=== PATIENT | female | born 1960 | race Caucasian/White ===

== ENCOUNTER 2016-11-25 17:55 | Inpatient (IN) | payer MEDICARE, OTHER ==
[2016-11-25 17:58] VITALS: RESP 20
[2016-11-25] MEDS ORDERED: Sodium Chloride 0.9% 1,000 ML IV ONE (18:58)
--- NOTE | 2016-11-25 19:16 | C.PDOC ---
History Of Present Illness 56 y/o female, whose PMHx includes gastritis, and pancreatitis, presents to the ED for evaluation of intermittent epigastric abdominal pain for the last 3 days. Otherwise, denies any fever, n/v/d, or any other associated symptoms at this time. Time Seen by Provider: 11/25/16 18:51 Chief Complaint (Nursing): Abdominal Pain History Per: Patient History/Exam Limitations: no limitations Onset/Duration Of Symptoms: Days (3) Current Symptoms Are (Timing): Still Present Location Of Pain/Discomfort: Epigastric Radiation Of Pain To:: None Quality Of Discomfort: "Pain" Associated Symptoms: denies: Fever, Chills, Nausea, Vomiting, Diarrhea, Loss Of Appetite, Back Pain, Chest Pain, Constipation, Urinary Symptoms Exacerbating Factors: None Alleviating Factors: None Recent travel outside of the [place]: No Additional History Per: Patient Abnormal Vaginal Bleeding: No Past Medical History Reviewed: Historical Data, Nursing Documentation, Vital Signs Vital Signs: Last Vital Signs Temp 98.2 F 11/25/16 17:56 Pulse 69 11/25/16 23:50 Resp 20 11/25/16 23:50 BP 150/87 11/25/16 23:50 Pulse Ox 97 11/25/16 23:50 - Medical History PMH: Depression, Diabetes, Gastritis, HTN, Pancreatitis Family History: States: Unknown Family Hx - Social History Hx Tobacco Use: Yes Hx Alcohol Use: No Hx Substance Use: No - Immunization History Hx Tetanus Toxoid Vaccination: No Hx Influenza Vaccination: No Hx Pneumococcal Vaccination: No Review Of Systems Except As Marked, All Systems Reviewed And Found Negative. Constitutional: Negative for: Fever, Chills Gastrointestinal: Positive for: Abdominal Pain. Negative for: Nausea, Vomiting , Diarrhea, Constipation Genitourinary: Negative for: Dysuria, Frequency, Hematuria Musculoskeletal: Negative for: Back Pain Physical Exam - Physical Exam Appears: Non-toxic, No Acute Distress Skin: Normal Color, Warm, Dry Head: Atraumatic, Normacephalic Eye(s): bilateral: Normal Inspection Neck: Supple Chest: Symmetrical Cardiovascular: Rhythm Regular Respiratory: Normal Breath Sounds, No Rales, No Rhonchi, No Wheezing Gastrointestinal/Abdominal: Soft, Tenderness (mild epigastric), No Guarding, No Rebound Extremity: Normal ROM Neurological/Psych: Oriented x3, Normal Speech, Normal Cognition ED Course And Treatment - Laboratory Results Result Diagrams: 11/25/16 19:12 11/25/16 19:12 O2 Sat by Pulse Oximetry: 98 (on RA) Pulse Ox Interpretation: Normal Progress Note: Labs, EKG ordered and reviewed. Patient was given Protonix, Zofran, and IV fluids. On reassessment, patient is resting comfortably, with no acute distress. Medical Decision Making Medical Decision Making: abdominal pain r/o pancreatitis- labs imaging pending pt reassesedL noted lipase. ivf and pain control given. ct shows pancreatitis. no gallbladder pathology . pt denies drinking. pt unsure of previous eitology of pancreatitis. dr carlota hinojosa Disposition - Disposition Disposition: HOSPITALIZED Disposition Time: 11:00 Condition: STABLE - Clinical Impression Clinical Impression: Pancreatitis - Scribe Statement The provider has reviewed the documentation as recorded by the Scribe Andrea Juarez All medical record entries made by the Scribe were at my direction and personally dictated by me. I have reviewed the chart and agree that the record accurately reflects my personal performance of the history, physical exam, medical decision making, and the department course for this patient. I have also personally directed, reviewed, and agree with the discharge instructions and disposition. Decision To Admit - Pt Status Changed To: Hospital Disposition Of: Inpatient - Admit Certification Admit to Inpatient:: After my assessment, the patient will require hospitalization for at least two midnights. This is because of the severity of symptoms shown, intensity of services needed, and/or the medical risk in this patient being treated as an outpatient. - InPatient: Physician Admission Certification:: pancreatis needs ivf, and pain contorl - . Bed Request Type: Regular Admitting Physician: Francisco Birmingham Jr. Patient Diagnosis: Pancreatitis
[2016-11-25] MEDS ORDERED: Sodium Chloride 0.9% 1,000 ML ONE (19:19)
[2016-11-25 19:21] LABS: BASO % 0.4 % (0.0-2.0); EOS # 0.1 K/uL (0.0-0.7); EOS % 0.7 % (0.0-4.0); HEMOGLOBIN 14.1 g/dL (11.0-16.0); LYMPH # 2.9 K/uL (1.0-4.3); LYMPH % 28.7 % (20.0-40.0); MEAN CELL VOLUME 93.4 fL (81.0-99.0); MEAN CORPUSCULAR HEMOGLOBIN 31.3 pg (27.0-31.0); MEAN CORPUSCULAR HGB CONC 33.5 g/dL (33.0-37.0); MEAN PLATELET VOLUME 10.4 fL (7.2-11.7); MONO # 0.6 K/uL (0.0-0.8); MONO % 5.8 % (0.0-10.0); NEUT # 6.5 K/uL (1.8-7.0); NEUT % 64.4 % (50.0-75.0); RBC 4.51 Mil/uL (3.80-5.20); RED CELL DISTRIBUTION WIDTH 13.9 % (11.5-14.5); WHITE BLOOD COUNT 10.1 K/uL (4.8-10.8)
[2016-11-25 19:30] LABS: ALB/GLOB RATIO 1.1 (1.0-2.1); AST/SGOT 22 U/L (14-36); GFR AFRICAN-AMERICAN > 60; GFR NON-AFRICAN AMERICAN > 60; PROTHROMBIN TIME 11.5 SECONDS (9.7-12.2)
[2016-11-25 19:31] LABS: ALT/SGPT 19 U/L (9-52); BLOOD UREA NITROGEN 15 mg/dL (7-17); CALCIUM 9.6 mg/dl (8.6-10.4); LIPASE 1835 U/L (23-300)
[2016-11-25 19:32] LABS: SQUAMOUS EPITHIAL 16 /hpf (0-5); URINE BACTERIA RARE (<OCC); URINE BILIRUBIN NEGATIVE (NEGATIVE); URINE BLOOD NEGATIVE (NEGATIVE); URINE CLARITY Hazy (Clear); URINE COLOR Yellow (YELLOW); URINE GLUCOSE (UA) NORMAL (Normal); URINE LEUKOCYTE ESTERASE NEG Leu/uL (Negative); URINE NITRATE NEGATIVE (NEGATIVE); URINE PROTEIN 1+ mg/dL (NEGATIVE); URINE UROBILINOGEN NORMAL mg/dL (0.2-1.0)
[2016-11-25] MEDS ORDERED: Iohexol 300 100 ML IJ ONE (19:50)
[2016-11-25] MEDS ORDERED: Morphine 4 MG/ML VIAL ONE (19:55)
--- NOTE | 2016-11-25 21:58 | CT ---
EXAM: CT Abdomen and Pelvis With Intravenous Contrast CLINICAL HISTORY: 56 years old, female; Pain; Abdominal pain; Generalized; Additional info: Abd pain h/o of pancreatitis TECHNIQUE: Axial computed tomography images of the abdomen and pelvis with intravenous contrast. This CT exam was performed using one or more of the following dose reduction techniques: automated exposure control, adjustment of the mA and/or kV according to patient size, and/or use of iterative reconstruction technique. Coronal and sagittal reformatted images were created and reviewed. CONTRAST: 100 mL of omnipaque 300 administered intravenously. COMPARISON: No relevant prior studies available. FINDINGS: Lower thorax: RIGHT lower lobe calcified granuloma. ABDOMEN: Liver: Fatty infiltration. Mildly lobulated contour. Small hepatic calcification. Gallbladder and bile ducts: No calcified stones. No ductal dilation. Pancreas: Mild stranding about pancreas. No definite pancreatic necrosis. No discrete peripancreatic collection. Spleen: Small splenic calcification. No splenomegaly. Adrenals: No mass. Kidneys and ureters: 8.6 x 7.6 x 7.2 cm LEFT renal cyst. No hydronephrosis. Stomach and bowel: No definite mural thickening. No obstruction. Appendix: Normal caliber. No inflammation. PELVIS: Bladder: Unremarkable. Reproductive: Few small calcifications within LEFT adnexal region. ABDOMEN and PELVIS: Intraperitoneal space: No significant fluid collection. No free air. Bones/joints: No acute fracture. Soft tissues: Unremarkable. Vasculature: Patent splenic artery and vein. Mild to moderate atherosclerotic disease of aorta and iliac arteries. No aneurysm. Lymph nodes: Few mild to moderately enlarged short axis lymph nodes within upper abdomen. IMPRESSION: 1. Acute pancreatitis. 2. Probable mild cirrhosis. 3. Abdominal lymphadenopathy, nonspecific. 4. Incidental/non-acute findings are described above.
--- NOTE | 2016-11-26 01:33 | CP.PCM.HP ---
History of Present Illness - History of Present Illness History of Present Illness: Medicine Note CC: abdominal pain HPI: 56F with PMHx of HTN, DM, HLD, and depression presents to the ED with abdominal pain x 3 days. Denied fever, chills, headache, chest pain, abdominal pain, n/v/d/c, or urinary symptoms. PMHx: HTN, DM, HLD, depression PSHx: Denied Meds: As per JUL All: NKDA SHx: Admits to smoking 1/2 PPD for 20 years, denied alcohol use, or illicit drug use FHx: Present on Admission - Present on Admission Any Indicators Present on Admission: No Past Patient History - Past Social History Smoking Status: Light Smoker < 10 Cigarettes Daily - CARDIAC Hx Hypertension: Yes - GASTROINTESTINAL Hx Gastritis: Yes Hx Pancreatitis: Yes - PSYCHIATRIC Hx Depression: Yes Hx Substance Use: No - ANESTHESIA Hx Anesthesia: No Hx Anesthesia Reactions: No Meds Allergies/Adverse Reactions: Allergies Allergy/AdvReac Type Severity Reaction Status Date / Time No Known Allergies Allergy Verified 11/25/16 18:03 Results - Vital Signs Recent Vital Signs: Last Vital Signs Temp 97.9 F 11/26/16 01:26 Pulse 81 11/26/16 01:26 Resp 20 11/26/16 01:26 BP 118/75 11/26/16 01:26 Pulse Ox 95 11/26/16 01:26 - Labs Result Diagrams: 11/25/16 19:12 11/25/16 19:12 Assessment & Plan - Assessment and Plan (Free Text) Assessment: 56F with PMHx of HTN, DM, HLD, and depression presents to the ED with abdominal pain x 3 days. Plan: Pancreatitis * NPO, IVF @ 200cc/hr * CT AB & Pelvis: 1. Acute pancreatitis. 2. Probable mild cirrhosis. 3. Abdominal lymphadenopathy, nonspecific. 4. Incidental/non-acute findings are described above. * Toradol, Morphine PRN for pain control HTN * Restarted home medication: Lisinopril 10mg PO daily * Monitor DM * Restarted home medication: Metformin 1000mg PO BID * Accuchecks HLD * Started on Crestor 5mg PO QHS * F/U lipid panel Hx Depression Prophylactic Measures * GI PPX: Protonix 40mg PO daily * DVT PPX: SCDs, Lovenox 40mg SC daily DW Emmy White DO, PGY-1
[2016-11-26] MEDS: Sodium Chloride 0.9% 1,000 ML IV SCH ×4 (01:56→21:13)
[2016-11-26 07:47] LABS: BASO % 0.3 % (0.0-2.0); EOS # 0.1 K/uL (0.0-0.7); EOS % 1.6 % (0.0-4.0); HEMOGLOBIN 13.2 g/dL (11.0-16.0); LYMPH # 2.3 K/uL (1.0-4.3); MEAN CORPUSCULAR HEMOGLOBIN 31.2 pg (27.0-31.0); MEAN CORPUSCULAR HGB CONC 33.5 g/dL (33.0-37.0); MEAN PLATELET VOLUME 10.1 fL (7.2-11.7); MONO # 0.4 K/uL (0.0-0.8); NEUT # 3.9 K/uL (1.8-7.0); NEUT % 58.1 % (50.0-75.0); NRBC % 0.1 % (0.0-2.0); RBC 4.23 Mil/uL (3.80-5.20); RED CELL DISTRIBUTION WIDTH 13.9 % (11.5-14.5); WHITE BLOOD COUNT 6.8 K/uL (4.8-10.8)
[2016-11-26 07:58] LABS: ALBUMIN 3.4 g/dL (3.5-5.0)
[2016-11-26 08:00] LABS: GFR AFRICAN-AMERICAN > 60; GFR NON-AFRICAN AMERICAN > 60
[2016-11-26 08:01] LABS: ALB/GLOB RATIO 1.1 (1.0-2.1); ALT/SGPT 16 U/L (9-52); AST/SGOT 19 U/L (14-36); BLOOD UREA NITROGEN 11 mg/dL (7-17); CALCIUM 8.7 mg/dl (8.6-10.4)
[2016-11-26 08:02] LABS: MAGNESIUM 2.2 mg/dL (1.6-2.3)
[2016-11-26 10:06] LABS: HDL CHOLESTEROL 33 mg/dL (30-70)
[2016-11-26 10:18] LABS: LDL CHOLESTEROL 133 mg/dL (0-129)
[2016-11-26] MEDS: Enoxaparin 40 mg Syringe SC SCH (10:31)
--- NOTE | 2016-11-26 17:09 | CARD ---
APPROVED REPORT EKG Measurement Heart [id number] <Conclusion> Normal sinus rhythm Normal ECG
[2016-11-26 17:24] VITALS: O2SAT 99
--- NOTE | 2016-11-26 19:54 | CP.PCM.PN ---
<Lelo Carrillo - Last Filed: 11/26/16 19:51> Subjective - Date & Time of Evaluation Date of Evaluation: 11/26/16 Time of Evaluation: 08:00 - Subjective Subjective: PGY1- Medicine Note- Dr. Birmingham's Service Patient was seen today at bedside sitting up comfortably in no acute distress with no visitors at bedside. She reports great improvement from yesterday and complete resolution of epigastric and abdominal pain. Last bowel movement was this morning, requests to begin eating. Denies fever, chills, headache, chest pain, palpitations,SOB, abdominal tenderness, n/v/c/d, urinary symptoms. Objective - Vital Signs/Intake and Output Vital Signs (last 24 hours): Temp Pulse Resp BP Pulse Ox 99.2 F 63 20 146/80 99 11/26/16 15:22 11/26/16 15:22 11/26/16 15:22 11/26/16 15:22 11/26/16 15:22 Intake and Output: 11/26/16 11/27/16 18:59 06:59 Intake Total 1000 Balance 1000 - Medications Medications: Current Medications Enoxaparin Sodium (Lovenox) 40 mg SC DAILY [facility] [place] Last Admin: 11/26/16 10:31 Dose: 40 mg Sodium Chloride (Sodium Chloride 0.9%) 1,000 mls @ 200 mls/hr IV .Q5H [facility] [place] Last Admin: 11/26/16 13:09 Dose: 200 mls/hr Ketorolac Tromethamine (Toradol) 30 mg IV Q6 PRN PRN Reason: Pain, moderate (4-7) Last Admin: 11/26/16 14:11 Dose: 30 mg Lisinopril (Zestril) 10 mg PO DAILY [facility] [place] Last Admin: 11/26/16 10:31 Dose: 10 mg Metformin HCl (Glucophage) 1,000 mg PO BID [facility] [place] Last Admin: 11/26/16 10:30 Dose: 1,000 mg Morphine Sulfate (Morphine) 2 mg IVP Q4H PRN PRN Reason: Pain, severe (8-10) Ondansetron HCl (Zofran Inj) 4 mg IVP Q6 PRN PRN Reason: Nausea/Vomiting Pantoprazole Sodium (Protonix Ec Tab) 40 mg PO DAILY [facility] [place] Rosuvastatin Calcium (Crestor) 5 mg PO HS [facility] [place] - Labs Labs: 11/26/16 07:31 11/26/16 07:31 PT 11.5 SECONDS (9.7-12.2) 11/25/16 19:12 INR 1.0 11/25/16 19:12 APTT 29 SECONDS (21-34) 11/25/16 19:12 - Constitutional Appears: Well, Non-toxic, No Acute Distress - Head Exam Head Exam: ATRAUMATIC, NORMAL INSPECTION, NORMOCEPHALIC - Eye Exam Eye Exam: EOMI, Normal appearance, PERRL - ENT Exam ENT Exam: Mucous Membranes Moist, Normal Exam - Neck Exam Neck Exam: Full ROM, Normal Inspection. absent: Lymphadenopathy - Respiratory Exam Respiratory Exam: Clear to Ausculation Bilateral, NORMAL BREATHING PATTERN. absent: Rales, Rhonchi, Wheezes, Stridor - Cardiovascular Exam Cardiovascular Exam: REGULAR RHYTHM, RRR, +S1, +S2. absent: Murmur - GI/Abdominal Exam GI & Abdominal Exam: Soft, Normal Bowel Sounds. absent: Distended, Firm, Guarding, Rigid, Tenderness - Extremities Exam Extremities Exam: Full ROM, Normal Capillary Refill, Normal Inspection. absent : Joint Swelling, Pedal Edema - Back Exam Back Exam: NORMAL INSPECTION - Neurological Exam Neurological Exam: Alert, Awake, Oriented x3 - Psychiatric Exam Psychiatric exam: Normal Affect, Normal Mood - Skin Skin Exam: Intact, Normal Color, Warm Assessment and Plan - Assessment and Plan (Free Text) Assessment: Pancreatitis * NPO, IVF @ 200cc/hr stopped, patient to resume clear liquid diet for dinner on 11/26, monitor for pain and see how tolerating po intake * CT AB & Pelvis: 1. Acute pancreatitis. 2. Probable mild cirrhosis. 3. Abdominal lymphadenopathy, nonspecific. 4. Incidental/non-acute findings are described above. * Toradol, Morphine PRN for pain control HTN * Restarted home medication: Lisinopril 10mg PO daily * Monitor DM * Restarted home medication: Metformin 1000mg PO BID * Accuchecks HLD * Started on Crestor 5mg PO QHS * F/U lipid panel Hx Depression Prophylactic Measures * GI PPX: Protonix 40mg PO daily * DVT PPX: SCDs, Lovenox 40mg SC daily <Francisco Birmingham Jr. - Last Filed: 11/30/16 10:39> Objective - Vital Signs/Intake and Output Vital Signs (last 24 hours): Temp Pulse Resp BP Pulse Ox 97.6 F 77 20 125/71 99 11/27/16 00:00 11/27/16 00:00 11/27/16 00:00 11/27/16 00:00 11/27/16 00:00 - Labs Labs: 11/27/16 07:00 11/27/16 07:00 PT 11.5 SECONDS (9.7-12.2) 11/25/16 19:12 INR 1.0 11/25/16 19:12 APTT 29 SECONDS (21-34) 11/25/16 19:12 Attending/Attestation - Attestation I have personally seen and examined this patient.: Yes I have fully participated in the care of the patient.: Yes I have reviewed all pertinent clinical information, including history, physical exam and plan: Yes Notes (Text): 11/30/16 10:39 Agree with resident note and findings
[2016-11-26] MEDS: Pantoprazole 40 mg EC Tab PO SCH (21:31)
[2016-11-26] MEDS ORDERED: (Novolin R) Insulin Human Regular 100 units/ml vial SC SCH (22:00)
[2016-11-27 01:06] VITALS: BP 125/71; PULSE 77; TEMP 97.6
[2016-11-27] MEDS: Sodium Chloride 0.9% 1,000 ML IV SCH (01:19)
[2016-11-27 07:18] LABS: ALBUMIN 3.2 g/dL (3.5-5.0)
[2016-11-27 07:20] LABS: GFR AFRICAN-AMERICAN > 60; GFR NON-AFRICAN AMERICAN > 60
[2016-11-27 07:21] LABS: ALB/GLOB RATIO 1.1 (1.0-2.1); ALT/SGPT 20 U/L (9-52); AST/SGOT 17 U/L (14-36); BLOOD UREA NITROGEN 7 mg/dL (7-17); CALCIUM 8.5 mg/dl (8.6-10.4); MAGNESIUM 1.8 mg/dL (1.6-2.3)
[2016-11-27 07:26] LABS: BASO % 0.4 % (0.0-2.0); EOS # 0.1 K/uL (0.0-0.7); EOS % 1.7 % (0.0-4.0); HEMOGLOBIN 12.6 g/dL (11.0-16.0); LYMPH # 2.1 K/uL (1.0-4.3); LYMPH % 34.6 % (20.0-40.0); MEAN CELL VOLUME 94.4 fL (81.0-99.0); MEAN CORPUSCULAR HEMOGLOBIN 31.1 pg (27.0-31.0); MEAN PLATELET VOLUME 10.4 fL (7.2-11.7); MONO # 0.4 K/uL (0.0-0.8); MONO % 6.2 % (0.0-10.0); NEUT # 3.5 K/uL (1.8-7.0); NEUT % 57.1 % (50.0-75.0); RBC 4.04 Mil/uL (3.80-5.20); RED CELL DISTRIBUTION WIDTH 13.5 % (11.5-14.5)
[2016-11-27] MEDS: Enoxaparin 40 mg Syringe SC SCH (09:28)
[2016-11-27] MEDS: Pantoprazole 40 mg EC Tab PO SCH (09:28)
--- NOTE | 2016-11-27 20:46 | CP.PCM.DIS ---
Provider - Provider Date of Admission: 11/25/16 22:07 Attending physician: Francisco Birmingham Jr, MD Consults: Dr. Birmingham Time Spent in preparation of Discharge (in minutes): 45 Diagnosis - Discharge Diagnosis (1) Pancreatitis Status: Acute Comment: see summary for details (2) Hypertension Status: Acute Comment: see summary for details (3) Diabetes Status: Acute Comment: see summary for details Hospital Course - Lab Results Lab Results: Most Recent Lab Values WBC 6.0 K/uL (4.8-10.8) 11/27/16 07:00 RBC 4.04 Mil/uL (3.80-5.20) 11/27/16 07:00 Hgb 12.6 g/dL (11.0-16.0) 11/27/16 07:00 Hct 38.1 % (34.0-47.0) 11/27/16 07:00 MCV 94.4 fL (81.0-99.0) 11/27/16 07:00 MCH 31.1 pg (27.0-31.0) H 11/27/16 07:00 MCHC 33.0 g/dL (33.0-37.0) 11/27/16 07:00 RDW 13.5 % (11.5-14.5) 11/27/16 07:00 Plt Count 136 K/uL (130-400) 11/27/16 07:00 MPV 10.4 fL (7.2-11.7) 11/27/16 07:00 Neut % (Auto) 57.1 % (50.0-75.0) 11/27/16 07:00 Lymph % (Auto) 34.6 % (20.0-40.0) 11/27/16 07:00 [place] % (Auto) 6.2 % (0.0-10.0) 11/27/16 07:00 Eos % (Auto) 1.7 % (0.0-4.0) 11/27/16 07:00 Baso % (Auto) 0.4 % (0.0-2.0) 11/27/16 07:00 Neut # 3.5 K/uL (1.8-7.0) 11/27/16 07:00 Lymph # 2.1 K/uL (1.0-4.3) 11/27/16 07:00 [place] # 0.4 K/uL (0.0-0.8) 11/27/16 07:00 Eos # 0.1 K/uL (0.0-0.7) 11/27/16 07:00 Baso # 0.0 K/uL (0.0-0.2) 11/27/16 07:00 PT 11.5 SECONDS (9.7-12.2) 11/25/16 19:12 INR 1.0 11/25/16 19:12 APTT 29 SECONDS (21-34) 11/25/16 19:12 Sodium 139 mmol/L (132-148) 11/27/16 07:00 Potassium 4.1 mmol/L (3.6-5.2) 11/27/16 07:00 Chloride 107 mmol/L (98-107) 11/27/16 07:00 Carbon Dioxide 27 mmol/L (22-30) 11/27/16 07:00 Anion Gap 9 (10-20) L 11/27/16 07:00 BUN 7 mg/dL (7-17) 11/27/16 07:00 Creatinine 0.7 MG/DL (0.7-1.2) 11/27/16 07:00 Est GFR ( Amer) > 60 11/27/16 07:00 Est GFR (Non-Af Amer) > 60 11/27/16 07:00 POC Glucose (mg/dL) 93 mg/dL (65-110) 11/27/16 07:23 Random Glucose 92 mg/dL (65-105) 11/27/16 07:00 Calcium 8.5 mg/dl (8.6-10.4) L 11/27/16 07:00 Phosphorus 3.3 mg/dL (2.5-4.5) 11/27/16 07:00 Magnesium 1.8 mg/dL (1.6-2.3) 11/27/16 07:00 Total Bilirubin 0.8 mg/dL (0.2-1.3) 11/27/16 07:00 AST 17 U/L (14-36) 11/27/16 07:00 ALT 20 U/L (9-52) 11/27/16 07:00 Alkaline Phosphatase 64 U/L (38-126) 11/27/16 07:00 Troponin I < 0.0120 ng/mL (0.00-0.120) 11/25/16 19:12 Total Protein 6.2 g/dL (6.3-8.3) L 11/27/16 07:00 Albumin 3.2 g/dL (3.5-5.0) L 11/27/16 07:00 Globulin 3.0 gm/dL (2.2-3.9) 11/27/16 07:00 Albumin/Globulin Ratio 1.1 (1.0-2.1) 11/27/16 07:00 Triglycerides 112 mg/dL (0-149) 11/26/16 09:55 Cholesterol 180 mg/dL (0-199) 11/26/16 09:55 LDL Cholesterol Direct 133 mg/dL (0-129) H 11/26/16 09:55 HDL Cholesterol 33 mg/dL (30-70) 11/26/16 09:55 Lipase 1835 U/L (23-300) H 11/25/16 19:12 Urine Color Yellow (YELLOW) 11/25/16 19:12 Urine Clarity Hazy (Clear) 11/25/16 19:12 Urine pH 8.0 (5.0-8.0) 11/25/16 19:12 Ur Specific Stra[place]hn 1.018 (1.003-1.030) 11/25/16 19:12 Urine Protein 1+ mg/dL (NEGATIVE) H 11/25/16 19:12 Urine Glucose (UA) Normal mg/dL (Normal) 11/25/16 19:12 Urine Ketones Negative mg/dL (NEGATIVE) 11/25/16 19:12 Urine Blood Negative (NEGATIVE) 11/25/16 19:12 Urine Nitrate Negative (NEGATIVE) 11/25/16 19:12 Urine Bilirubin Negative (NEGATIVE) 11/25/16 19:12 Urine Urobilinogen Normal mg/dL (0.2-1.0) 11/25/16 19:12 Ur Leukocyte Esterase Neg Vicente/uL (Negative) 11/25/16 19:12 Urine WBC (Auto) 1 /hpf (0-5) 11/25/16 19:12 Urine RBC (Auto) 1 /hpf (0-3) 11/25/16 19:12 Ur Squamous Epith Cells 16 /hpf (0-5) H 11/25/16 19:12 Urine Bacteria Rare (<OCC) 11/25/16 19:12 - Hospital Course Hospital Course: "CC: abdominal pain HPI: 56F with PMHx of HTN, DM, HLD, and depression presents to the ED with abdominal pain x 3 days. Patient reports she started to epigastric abdominal pain that started 3 days ago. Patient reports she does not drink alcohol. She has been unable to tolerate anything by mouth. Her abdominal pain is associated with nausea, diarrhea, subjective fevers. She denies taking anything for the pain. This has happened to her 2-3 years ago, requiring an admission to the hospital. Denied fever, chills, headache, chest pain, abdominal pain, n/v/d/c, or urinary symptoms." Patient placed NPO, and given IVF @ 200cc/hr. CT AB & Pelvis showed 1. Acute pancreatitis. 2. Probable mild cirrhosis. 3. Abdominal lymphadenopathy, nonspecific. 4. Incidental/non-acute findings are described above. Toradol, Morphine PRN were given for pain control. Hypertension was controlled with home medication. Diabetes was controlled with home medication and accuchecks were done. Patient put on protonix and heparin as prophylactic measures. Patient's pain decreased. The next day patient said she had no pain and was hungry. Patient tolerated the food she was given. Patient was cleared for discharge as per Dr. Birmingham. Patient to follow up with Dr. Birmingham and to eat foods low in fat and acid for 2 days and then slowly reintroduce. This is a summary of the hospital course. Please see chart for full details. Discharge Exam - Head Exam Head Exam: ATRAUMATIC, NORMAL INSPECTION, NORMOCEPHALIC - Eye Exam Eye Exam: EOMI, Normal appearance, PERRL - ENT Exam ENT Exam: Mucous Membranes Moist - Neck Exam Neck exam: Full Rom, Normal Inspection - Respiratory Exam Respiratory Exam: Clear to PA & Lateral, NORMAL BREATHING PATTERN, UNREMARKABLE - Cardiovascular Exam Cardiovascular Exam: REGULAR RHYTHM, RRR - GI/Abdominal Exam GI & Abdominal Exam: Normal Bowel Sounds. absent: Distended, Firm, Guarding, Tenderness - Extremities Exam Extremities exam: full ROM, normal inspection - Back Exam Back exam: NORMAL INSPECTION. absent: rash noted - Neurological Exam Neurological exam: Alert, Oriented x3 - Psychiatric Exam Psychiatric exam: Normal Affect, Normal Mood - Skin Skin Exam: Intact, Normal Color, Warm Discharge Plan - Follow Up Plan Condition: STABLE Disposition: HOME/ ROUTINE Instructions: Pancreatitis (DC) Additional Instructions: Patient cleared for discharge as per Dr. Birmingham. Patient to resume home medications: Lisinopril 10 mg PO daily, Metformin 1000mg PO BID, Protonix 40 mg PO daily. Please eat a bland diet low in fat and acidic foods for 2 days. If symptoms return please return to emergency room immediately. Patient explained instructions and understands. Referrals: Francisco Birmingham Jr., MD [Medical Doctor] -
== END 2016-11-27 10:46 | disposition home or self-care (01) | DRG 440 ==
LOC: C.ER 17:55 → C.9E 22:07 → C.3T 23:42
PROVIDERS: ADMIT Internal Medicine; ATTEND Internal Medicine
DX: K85.90 Acute pancreatitis without necrosis or infection, unspecified (principal); K74.60 Unspecified cirrhosis of liver; I10 Essential (primary) hypertension; E11.9 Type 2 diabetes mellitus without complications; E78.5 Hyperlipidemia, unspecified; Z79.84 Long term (current) use of oral hypoglycemic drugs; F17.210 Nicotine dependence, cigarettes, uncomplicated

== ENCOUNTER 2017-04-23 05:51 | Emergency (ER) | payer MEDICARE, OTHER ==
--- NOTE | 2017-04-23 06:15 | C.PDOC ---
History Of Present Illness 56 year old female with PMH of HTN, DM and hyperlipidemia presents to ED with complaints of dizziness. She reports awaking at 4am to use the bathroom and feeling dizzy while walking to restroom. She reports taking her HTN medication and came to ED for evaluation. Upon arrival to ED she reports feeling better, but states feels her blood pressure is still high. She denies any fall, LOC or injury while going to restroom. Denies headache, visual changes, chest pain, SOB , extremity or facial numbness/weakness. She admits to prior episodes of similar episodes in the past. (Lorelei Erickson) History Per: Patient History/Exam Limitations: no limitations Onset/Duration Of Symptoms: Hrs Current Symptoms Are (Timing): Better Time Seen by Provider: 04/23/17 06:07 Chief Complaint (Nursing): Dizziness/Lightheaded Past Medical History Reviewed: Historical Data, Nursing Documentation, Vital Signs - Medical History PMH: Depression, Diabetes, Gastritis, GERD, HTN, Hyperlipidemia, Pancreatitis Surgical History: No Surg Hx Family History: States: Unknown Family Hx - Social History Hx Tobacco Use: Yes Hx Alcohol Use: No Hx Substance Use: No - Immunization History Hx Tetanus Toxoid Vaccination: No Hx Influenza Vaccination: No Hx Pneumococcal Vaccination: No Vital Signs: Last Vital Signs Temp 97.5 F L 04/23/17 06:50 Pulse 60 04/23/17 06:50 Resp 18 04/23/17 06:50 BP 123/75 04/23/17 06:50 Pulse Ox 100 04/23/17 06:50 Review Of Systems Constitutional: Negative for: Fever, Malaise Eyes: Negative for: Pain, Vision Change Cardiovascular: Negative for: Chest Pain, Palpitations Respiratory: Negative for: Cough, Shortness of Breath, Sputum Gastrointestinal: Negative for: Nausea, Vomiting, Abdominal Pain, Diarrhea Musculoskeletal: Negative for: Neck Pain, Shoulder Pain Neurological: Negative for: Weakness, Numbness, Headache, Dizziness Physical Exam - Physical Exam Appears: Non-toxic, No Acute Distress Skin: Warm, Dry, No Diaphoretic, No Pale, No Ecchymosis Head: Atraumatic, Normacephalic Eye(s): bilateral: Normal Inspection, PERRL, EOMI Nose: Normal Oral Mucosa: Moist Neck: Normal ROM Chest: Symmetrical Cardiovascular: Rhythm Regular, No Murmur Respiratory: Normal Breath Sounds, No Rhonchi Extremity: Bilateral: Atraumatic, No Pedal Edema, Normal Color And Temperature, Normal ROM Pulses: Left Radial: Normal Neurological/Psych: Oriented x3, Normal Speech, Normal Cranial Nerves, No Cerebellar Signs, Normal Motor, Normal Sensation Gait: Steady Other Neurological Findings: No Facial Palsy Extremity: Right: No Drift, Left: No Drift, Upper: No Drift, Lower: No Drift ED Course And Treatment ECG: Interpreted By Me, Viewed By Me ECG Rhythm: Sinus Rhythm ECG Interpretation: No Acute Changes Rate From EC O2 Sat by Pulse Oximetry: 96 (room air) Pulse Ox Interpretation: Normal Medical Decision Making Medical Decision Making: Impression: Dizziness Plan: * EKG * Accucheck * Meclizine * Does not want bloodwork Progress: EKG is NS at [address]-T changes or ischemic changes. Accucheck was 206. Patient reports her sugars usually run 130-200 and has not taken her medicine yet this morning. Patient already asking for discharge shortly after receiving medication. She states she just wanted her blood pressure checked. Family member at bedside will accompany patient home. Patient alert and oriented in no distress with no neuro deficits (Lorelei Erickson) Disposition Counseled Patient/Family Regarding: Diagnosis, Need For Followup, Rx Given - Disposition Disposition Time: 06:46 - POA Present On Arrival: None - Disposition Referrals: Etta Guerra MD [Primary Care Provider] - Disposition: HOME/ ROUTINE Condition: IMPROVED Additional Instructions: [employer] petty medicamentos habituales gagan se indica [employer] Meclizine segn sea necesario cada 6-8 horas para mareos Por favor, camille un seguimiento con godinez mdico primario para danielle evalaucin adicional. Regrese a la tiffani de emergencias por sntomas persistentes, debilidad, entumecimiento o cambio en el estado mental Prescriptions: Meclizine [Meclizine*] 25 mg PO Q6 PRN #20 tab PRN Reason: Dizziness Instructions: Vertigo (ED) Forms: [employer] (Urdu) Print Language: TONGAN - Clinical Impression Clinical Impression: Dizziness
[2017-04-23 07:00] VITALS: BP 123/75; PULSE 60; RESP 18; TEMP 97.5; O2SAT 100
== END 2017-04-23 06:59 | disposition home or self-care (01) ==
LOC: SUPCPDRO 05:51 → C.ER 05:51
DX: R42 Dizziness and giddiness (principal); E11.9 Type 2 diabetes mellitus without complications; E78.5 Hyperlipidemia, unspecified; I10 Essential (primary) hypertension; Z87.891 Personal history of nicotine dependence

== ENCOUNTER 2017-10-25 12:48 | Emergency (ER) | payer MEDICARE, OTHER ==
[2017-10-25] MEDS ORDERED: Naproxen 550 mg Tab PO STA (13:26)
[2017-10-25] MEDS ORDERED: Naproxen 550 mg Tab PO ONE (13:36)
--- NOTE | 2017-10-25 14:19 | C.PDOC ---
History Of Present Illness 57 year old female presents to the ED for evaluation of right knee pain which began earlier today. Patient states she was at [employer] when she accidentally slipped on a puddle of water and fell onto her right knee. Patient denies head injury, LOC, extremity numbness/weakness. Time Seen by Provider: 10/25/17 13:07 Chief Complaint (Nursing): Lower Extremity Problem/Injury History Per: Patient History/Exam Limitations: no limitations Onset/Duration Of Symptoms: Hrs Current Symptoms Are (Timing): Still Present Additional History Per: Patient - Knee Description Of Injury: Fell Past Medical History Reviewed: Historical Data, Nursing Documentation, Vital Signs Vital Signs: Last Vital Signs Temp 98.2 F 10/25/17 14:31 Pulse 77 10/25/17 14:31 Resp 18 10/25/17 14:31 BP 130/79 10/25/17 14:31 Pulse Ox 93 L 10/25/17 14:31 - Medical History PMH: Depression, Diabetes, Gastritis, GERD, HTN, Hyperlipidemia, Pancreatitis Denies: Chronic Kidney Disease Surgical History: No Surg Hx Family History: States: Unknown Family Hx - Social History Hx Tobacco Use: Yes Hx Alcohol Use: No Hx Substance Use: No - Immunization History Hx Tetanus Toxoid Vaccination: No Hx Influenza Vaccination: No Hx Pneumococcal Vaccination: No Review Of Systems Musculoskeletal: Positive for: Other (right knee pain ) Neurological: Negative for: Other (head injury, LOC ) Physical Exam - Physical Exam Appears: Non-toxic, No Acute Distress Skin: Normal Color, Warm, Dry Head: Atraumatic, Normacephalic Eye(s): bilateral: Normal Inspection Oral Mucosa: Moist Neck: Supple Chest: Symmetrical, No Deformity, No Tenderness Cardiovascular: Rhythm Regular, No Murmur Respiratory: Normal Breath Sounds, No Rales, No Rhonchi, No Wheezing Back: Paraspinal Tenderness (lumbar ) Extremity: Normal ROM, Tenderness (mild, to right knee ), Capillary Refill ( less than 2 seconds ), No Deformity, No Swelling Neurological/Psych: Oriented x3, Normal Speech, Normal Cognition Gait: Steady ED Course And Treatment O2 Sat by Pulse Oximetry: 98 (on RA) Pulse Ox Interpretation: Normal - Other Rad lumbar spine XR X-Ray: Interpreted by Me, Viewed By Me, Read By Radiologist Interpretation: PROCEDURE: Radiographs of the Lumbar Spine. HISTORY: LOW BACK PAIN AFTER FALL. COMPARISON: No prior. FINDINGS: BONES: Straightened lumbar curvature with subtle dextroscoliotic thoracolumbar deformity also present. No fracture or spondylolisthesis. No definite destructive bony lesion appreciable. DISC SPACES: Disc interspace and to body heights are normal. OTHER FINDINGS: None. IMPRESSION: Straightened lumbar curvature. Dextroscoliotic deformity. No fracture or spondylolisthesis is definitively shown. knee XR X-Ray: Interpreted by Me, Viewed By Me, Read By Radiologist Interpretation: PROCEDURE: Right Knee Radiographs. HISTORY: RIGHT KNEE PAIN AFTER FALL. COMPARISON: None. FINDINGS: BONES: No acute fracture or destructive bony lesion identified. JOINTS: No subluxation or dislocation identified. JOINT EFFUSION: None. OTHER FINDINGS: None. IMPRESSION: No acute fracture or destructive bony lesion identified. No dislocation. Progress Note: Right knee XR and LS Spine AP/LAT XR ordered and reviewed. Results show no fracture or listhesis. Patient given Naproxen PO. JOSR bandage applied to knee by vascular ultrasound technician, was checked by me. Disposition Counseled Patient/Family Regarding: Studies Performed, Diagnosis, Need For Followup, Rx Given - Disposition Referrals: [facility] [Outside] [facility] [Outside] Micheal Crawley III, MD [Staff Provider] - Disposition: HOME/ ROUTINE Disposition Time: 14:20 Condition: STABLE Additional Instructions: FOLLOW UP WITH ORTHOPEDICS WITHIN 1 WEEK USE PAIN MEDICATION NEEDED ELEVATE RIGHT LEG MUCH POSSIBLE RETURN TO EMERGENCY ROOM IF SYMPTOMS WORSEN SEGUIMIENTO CON ORTOPEDIA DENTRO DE 1 SEMANA USE MEDICAMENTO PARA DOLOR SEGN SEA NECESARIO ELEVAR LA PIER[place] DERECHA LO MS POSIBLE REGRESE AL NITA DE EMERGENCIA SI LOS SNTOMAS EMPEORAN Prescriptions: Cane 1 each MC ONCE #1 each Cyclobenzaprine [Flexeril] 10 mg PO BID PRN #15 tab PRN Reason: Muscle Spasm Naproxen 375 mg PO BID PRN #20 tablet PRN Reason: pain Instructions: Low Back Pain (DC), Knee Sprain (DC) Forms: [facility] [employer] (Danish) Print Language: [place] - POA Core Measure Indicators: Code Sepsis - Clinical Impression Clinical Impression: Right knee sprain, Lumbar back sprain - Scribe Statement The provider has reviewed the documentation as recorded by the Scribe (Mikala Juarez) Provider Attestation: All medical record entries made by the Maria Guadalupeibdeandra were at my direction and personally dictated by me. I have reviewed the chart and agree that the record accurately reflects my personal performance of the history, physical exam, medical decision making, and the department course for this patient. I have also personally directed, reviewed, and agree with the discharge instructions and disposition.
[2017-10-25 14:33] VITALS: BP 130/79; PULSE 77; RESP 18; TEMP 98.2
--- NOTE | 2017-10-25 15:24 | RAD ---
PROCEDURE: Right Knee Radiographs. HISTORY: RIGHT KNEE PAIN AFTER FALL COMPARISON: None. FINDINGS: BONES: No acute fracture or destructive bony lesion identified. JOINTS: No subluxation or dislocation identified. JOINT EFFUSION: None. OTHER FINDINGS: None. IMPRESSION: No acute fracture or destructive bony lesion identified. No dislocation.
--- NOTE | 2017-10-25 15:34 | RAD ---
PROCEDURE: Radiographs of the Lumbar Spine. HISTORY: LOW BACK PAIN AFTER FALL COMPARISON: No prior. FINDINGS: BONES: Straightened lumbar curvature with subtle dextroscoliotic thoracolumbar deformity also present. No fracture or spondylolisthesis. No definite destructive bony lesion appreciable. DISC SPACES: Disc interspace and to body heights are normal. OTHER FINDINGS: None. IMPRESSION: Straightened lumbar curvature. Dextroscoliotic deformity. No fracture or spondylolisthesis is definitively shown.
[2017-10-25 16:10] VITALS: O2SAT 98
== END 2017-10-25 14:33 | disposition home or self-care (01) ==
LOC: C.ER 12:48
DX: S83.91XA Sprain of unspecified site of right knee, initial encounter (principal); S33.5XXA Sprain of ligaments of lumbar spine, initial encounter; W01.0XXA Fall on same level from slipping, tripping and stumbling without subsequent striking against object, initial encounter; Y92.512 Supermarket, store or market as the place of occurrence of the external cause; I10 Essential (primary) hypertension; E78.5 Hyperlipidemia, unspecified; E11.9 Type 2 diabetes mellitus without complications; Z72.0 Tobacco use